=== PATIENT | male | born 1970 | race Caucasian/White ===

== ENCOUNTER 2024-11-15 08:50 | Day surgery (SDC) | payer MEDICARE, OTHER ==
[2024-11-08 10:38] LABS: MEAN PLATELET VOLUME 7.4 FL (7.4-10.4); PRE OP HEMATOCRIT 43.8 % (42.0-52.0); PRE OP HEMOGLOBIN 15.1 g/dL (14.0-17.9); PRE OP PLATELET COUNT 204 X10'3 (140-440); PRE OP WHITE BLOOD COUNT 8.9 10'3 (4.8-10.8); RED CELL DISTRIBUTION WIDTH 14.7 % (11.5-14.5)
[2024-11-08 10:55] LABS: CREATININE 1.14 MG/DL (0.60-1.10); PRE OP ALT 18 U/L (30-65); PRE OP AST 20 U/L (10-37); PRE OP BILIRUB, TOTAL 0.5 MG/DL (0.0-1.0); PRE OP GLUCOSE 126 MG/DL (70-104); TOTAL CARBON DIOXIDE 27.4 MMOL/L (24-32); eGFR 67 ML/MIN
--- NOTE | 2024-11-08 10:56 | ELECTROCARDIOGRAPH REPORT ---
[facility] Test Date: 2024-11-08 Test Time: 10:50:58 Pat Name: NAA BERKOWITZ Department: PRE/OP CARDIOLOGY [id number] Room: Gender: M [employer]: JOANNE : 1970 Requested By: IMAN JEFFRIES Order [facility]: [id number] Reading MD: Dr. VERITO Sylvester Measurements Intervals [place] Rate: 90 P: 19 ID: [id number] QRS: -16 QRSD: 105 T: 53 QT: 362 QTc: 443 Interpretive Statements Sinus rhythm Borderline left axis deviation Electronically Signed On 11-08-2024 19:17:[address] VERITO Sylvester Please click the below link to view image of tracing.
[2024-11-08 11:43] LABS: PRE OP POTASSIUM 3.8 MMOL/L (3.4-5.1)
[2024-11-08 11:48] LABS: PRE OP ANION GAP 7 (8-16); PRE OP SODIUM 138 MMOL/L (135-145)
[2024-11-15] VITALS (11 sets, daily range): BP systolic 101–118; BP diastolic 62–76; PULSE 54–83; RESP 9–16; TEMP 97.8; O2SAT 96–100
[~2024-11-15] VITALS: Ht 175.3 cm; Wt 65.9 kg
[2024-11-15] MEDS: ceFAZolin 2gm/dext,iso 50mL 50 ML IV ONE (05:30)
[~2024-11-15 08:50] MED LIST: ATOR20TA66 PO; CARB-314 PO; CYAN-116 PO; FEXO180T94 PO; OMEP20CA16 PO; SOLI5TAB8 PO; TAMS-55 PO; ZOLP-679 PO; ZONI100C87 PO
[2024-11-15] MEDS ORDERED: iohexol 300 MG/1 ML 50ml polymer ONE (08:53)
[2024-11-15] MEDS: ringers solution, lacted 1,000 ML IV SCH (09:24)
[2024-11-15] MEDS ORDERED: fentaNYL/PF 50MCG/1 ML 2ML syringe ONE (11:08)
[2024-11-15] MEDS ORDERED: propofol inj 20 ML IV ONE (12:24)
[2024-11-15] MEDS ORDERED: hydrALAZINE 20mg/ml inj. IV PRN (12:50)
[2024-11-15] MEDS ORDERED: ringers solution, lacted 1,000 ML IV SCH (12:50)
[2024-11-15] MEDS ORDERED: labetalol 20mg/4ml (5mg/ml) syringe IV PRN (12:50)
[2024-11-15] MEDS ORDERED: HYDROmorphone/PF 0.2 MG/ML SYRINGE IV PRN ×2 (12:50)
[2024-11-15] MEDS ORDERED: ondansetron/PF 4mg/2ml inj IV PRN (12:50)
[2024-11-15] MEDS ORDERED: morphine 4 MG/ML inj SYRINge IV PRN (12:50)
--- NOTE | 2024-11-15 12:52 | OPERATIVE REPORT ---
Operative Report Providers to ~ Date of Procedure: Nov 15, 2024 Pre-Operative Diagnosis: left kidney stone Post-Operative Diagnosis SAME as PRE-Op Procedure Performed Cystoscopy, left retrograde pyelogram, left urteroscopy, laser lithotripsy with vacuum assisted aspiration, left stent placement. Surgeon: MD Yaneth Leather Coater None Anesthesiologist: Arron Stapleton Type of Anesthesia: General Findings: Left renal stones Complications None Prosthetics\Implants used: Left 6x26 double J ureteral stent Estimated Blood Loss: Minimal Specimen Removed: Left kidney stone Description of Procedure: Patient was brought to the operating room, given a general anesthetic, and placed in the dorsal lithotomy position. He was prepped and draped in the normal sterile fashion. A timeout was performed. A 22 bel[place]ian cystoscope was inserted via urethra. The left ureteral orifice was identified and intubated with a 5 [place]ian open ended catheter, which contrast was injected through. This showed a normal shape and taper but 2 stones in the left kidney. A second wire was passed into the kidney. A 12 -14 belarusian access sheath was advanced into the left ureter. This was advanced until it was in good position at which point the CVAC flexible ureteroscope was advanced into the left ureter. This was advanced up to the kidney, stone was identified and dusted with a laser fiber, and the stone fragments were all evacuated. The entire kidney was carefully examined and there was no further significant stone burden. The ureter was examined and there was a small tear and the very proximal portion. Once the scope was removed a 6x26 double J ureteral stent was advanced over the wire into the left kidney. The wire was removed and there was good coil seen on the proximal portion of the stent on spot flouroscopy and good coil seen on the distal portion on direct visualization. The bladder was drained of urine and the cystoscope removed via urethra. IMAN JEFFRIES MD Nov 15, 2024 12:52
== END 2024-11-15 14:28 | disposition home or self-care (01) ==
LOC: PAS 08:50
PROVIDERS: ATTEND Urology
DX: N20.0 Calculus of kidney (principal); K21.9 Gastro-esophageal reflux disease without esophagitis; Z87.442 Personal history of urinary calculi; Z79.899 Other long term (current) drug therapy; Z98.890 Other specified postprocedural states
CPT/HCPCS: 36415; 52332; 74420; 80053; 82948; 85025; 88300; 93005; A4618; A7000; C1747; C1894; C2617; C9761; J2704; J3010; J7030; J7120; Q9967; Z7506; Z7508; Z7512; Z7610; 76000